=== PATIENT | male | born 2005 | race Caucasian/White ===

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

== ENCOUNTER 2025-03-26 09:53 | Day surgery (SDC) | payer OTHER ==
[~2025-03-26] VITALS: Ht 172.7 cm; Wt 81.0 kg
[2025-03-26] MEDS ORDERED: CeFAZolin Sodium 2,000 MG VIAL ONE (11:09)
[2025-03-26] MEDS ORDERED: Tranexamic Acid 100 ML IV ONE (11:11)
[2025-03-26] MEDS ORDERED: NS 100 ML IV ONE (11:43)
--- NOTE | 2025-03-26 11:59 | NUR ---
03/26/25 Alondra Zavaleta: PATIENT'S MOM AT BEDSIDE, TALKING WITH PATIENT. CALL LIGHT IN REACH. NO NEEDS AT THIS TIME.
[2025-03-26] MEDS ORDERED: Midazolam HCl 1MG / ML 2ML Vial ONE (12:11)
[2025-03-26] MEDS ORDERED: Bupivacaine HCl 0.25% 30 ML Injection ONE (12:12)
[2025-03-26] MEDS ORDERED: Dexamethasone Sod Phos 10 MG/ML 1ML VIAL ONE (12:12)
[2025-03-26] MEDS ORDERED: FentaNYL Citrate 50 MCG/ML 2 ML Injection ONE (12:12)
[2025-03-26] MEDS ORDERED: HYDROmorphone HCl/Pf 1MG SYR ONE (12:44)
[2025-03-26] MEDS ORDERED: Vancomycin HCl 1000 MG ADDvantage ONE (13:27)
[2025-03-26] MEDS ORDERED: Ondansetron HCl 2 MG / ML 2ML Vial ONE (13:53)
--- NOTE | 2025-03-26 14:15 | NUR ---
03/26/25 1415 KEN MANN LMA REMOVED BY ANESTHESIA WHEN ENTERING PACU. NON-REBREATHER ON PT AT 6L. CURRENTLY O2 SAT IS 95%
--- NOTE | 2025-03-26 14:38 | NUR ---
03/26/25 1438 KEN MANN NAUSEA
[2025-03-26 15:14] VITALS: BP 140/81
== END 2025-03-26 15:49 | disposition home or self-care (01) ==
LOC: ORSCSDS 09:53
PROVIDERS: Orthopaedic Surgery Sports Medicine
PROC: 0MRN4KZ Replacement of Right Knee Bursa and Ligament with Nonautologous Tissue Substitute, Percutaneous Endoscopic Approach (ICD-10-PCS; principal; 2025-03-26 12:00)
DX: S83.511A Sprain of anterior cruciate ligament of right knee, initial encounter (principal); S83.281A Other tear of lateral meniscus, current injury, right knee, initial encounter
CPT/HCPCS: A9270; C1713; C1776; C1889; J0165; J0690; J1100; J1171; J2250; J2405; J2704; J3010; J3373; J7120